=== PATIENT | male | born 1985 | race American Indian/Alaskan Native ===

== ENCOUNTER 2020-04-14 23:05 | Emergency (ER) | payer MEDICAID ==
[2020-04-14] MEDS ORDERED: Succinylcholine 200 MG/10 ML MDV IV ONE (23:06)
[2020-04-14] MEDS ORDERED: Rocuronium 100 MG/10 ML MDV IV ONE (23:06)
[2020-04-14] MEDS ORDERED: Propofol 200 MG/20 ML SDV IV ONE (23:06)
[2020-04-14] MEDS ORDERED: LORazepam 2 MG/ML SDV IVPUSH ONE ×2 (23:07→23:17)
--- NOTE | 2020-04-14 23:09 | EDM.PDOC ---
ED HPI GENERAL MEDICAL PROBLEM - General Stated Complaint: AMBULANCE Time Seen by Provider: 04/14/20 23:08 Source of Information: Reports: EMS History Limitations: Reports: Altered Mental Status - History of Present Illness INITIAL COMMENTS - FREE TEXT/NARRATIVE: EMS arrived @ scene pt unresponsive lying on floor closet in his room.found by family member. pt started movement en route during naso airway placement. pt trying to sit up but non verbal. C-collar in place. follows command. 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 ED EXAM, UPPER BACK/NECK PAIN - Physical Exam Exam: See Below Exam Limited By: Combative/Threatening General Appearance: Other (non verbal, somewhat follow command) Eye Exam: Bilateral Eye: PERRL (pupils ER @ 5mm) Ears Exam: Hearing Grossly Normal Nose Exam: Other (nasal airway in place with good air motion) Throat/Mouth Exam: Other (in C collar) Head Exam: Atraumatic Neck Exam: Other (in C collar, visible bruising front of neck, no gross crepitus, trachea essentiall midline) Cardiovascular/Respiratory: Regular Rate, Rhythm, Rales, Rhonchi GI/Abdominal: No: No Distention Extremities: Normal Inspection, Normal Range of Motion Neurologic: Other (non verbal follows command, possible decorticating activity but with simultaneous body flexion) Psychiatric: Other (non verbal follows commands) Skin Exam: Normal Color, Warm/Dry Lymphatic: No Adenopathy Course - Orders/Labs/Meds Orders: Active Orders 24 hr Category Date Time Status EKG 12 Lead [EKG Documentation Completion] [RC] STAT Care 04/15/20 00:00 Active Chest 1V Frontal [CR] Urgent Exams 04/14/20 23:35 Taken Labs: Laboratory Tests 04/14/20 04/14/20 04/14/20 Range/Units 23:10 23:10 23:17 WBC 9.5 (5.0-10.0) 10^3/uL RBC 5.26 (4.6-6.2) 10^6/uL Hgb 16.2 (14.0-18.0) g/dL Hct 45.9 (40.0-54.0) % MCV 87.3 (80-100) fL MCH 30.8 (27.0-34.0) pg MCHC 35.3 H (33.0-35.0) g/dL Plt Count 262 (150-450) 10^3/uL Neut % (Auto) 84.2 H (42.2-75.2) % Lymph % (Auto) 9.6 L (20.5-50.1) % Fleming % (Auto) 5.2 (2-8) % Eos % (Auto) 0.6 L (1.0-3.0) % Baso % (Auto) 0.4 (0.0-1.0) % Sodium 141 (136-145) mmol/L Potassium 3.9 (3.5-5.1) mmol/L Chloride 104 (98-107) mmol/L Carbon Dioxide 22 (21-32) mmol/L Anion Gap 18.9 H (7-13) mEq/L BUN 9 (7-18) mg/dL Creatinine 1.44 H (0.70-1.30) mg/dL Est Cr Clr Drug Dosing TNP Estimated GFR (MDRD) 56 BUN/Creatinine Ratio 6.3 (No establ ref range) Glucose 180 H (74-99) mg/dL Calcium 8.3 L (8.5-10.1) mg/dL Total Bilirubin 0.7 (0.2-1.0) mg/dL AST 23 (15-37) U/L ALT 35 (16-63) U/L Alkaline Phosphatase 39 L (46-116) U/L Total Protein 8.1 (6.4-8.2) g/dL Albumin 4.1 (3.4-5.0) g/dL Globulin 4.0 Albumin/Globulin Ratio 1.0 Urine Opiates Screen Negative (NEGATIVE) Ur Oxycodone Screen Negative (NEGATIVE) Urine Methadone Screen Negative (NEGATIVE) Ur Barbiturates Screen Negative (NEGATIVE) U Tricyclic Antidepress Negative (NEGATIVE) Ur Phencyclidine Scrn Negative (NEGATIVE) Ur Amphetamine Screen Positive H (NEGATIVE) U Methamphetamines Scrn Positive H (NEGATIVE) Urine MDMA Screen Negative (NEGATIVE) U Benzodiazepines Scrn Negative (NEGATIVE) Urine Cocaine Screen Negative (NEGATIVE) U Marijuana (THC) Screen Negative (NEGATIVE) Ethyl Alcohol 132 (0) mg/dL Meds: Medications Discontinued Medications Generic Name Dose Route Start Last Admin Trade Name Freq PRN Reason Stop Dose Admin Lorazepam 1 mg 04/14/20 23:07 Ativan IVPUSH 04/14/20 23:08 ONETIME ONE Lorazepam 1 mg 04/14/20 23:17 Ativan IVPUSH 04/14/20 23:18 ONETIME ONE Lorazepam Confirm 04/14/20 23:19 Ativan Administered 04/14/20 23:20 Dose 2 mg .ROUTE .STK-MED ONE - Re-Assessments/Exams Free Text/Narrative Re-Assessment/Exam: 04/14/20 23:[address] Edmondson @ [facility] who kindly accepted pt. Departure - Departure Time of Disposition: 23:53 Disposition: DC/Tfer to Acute Hospital 02 Condition: Fair Clinical Impression: Asphyxiation by hanging Qualifiers: Encounter type: initial encounter Injury intent: undetermined intent Qualified Code(s): T71.164A - Asphyxiation due to hanging, undetermined, initial encounter - Discharge Information Forms: Interfacility Transfer EMTALA - My Orders Last 24 Hours: My Active Orders 04/14/20 23:35 Chest 1V Frontal [CR] Urgent 04/15/20 00:00 EKG 12 Lead [EKG Documentation Completion] [RC] STAT - Assessment/Plan Last 24 Hours: My Active Orders 04/14/20 23:35 Chest 1V Frontal [CR] Urgent 04/15/20 00:00 EKG 12 Lead [EKG Documentation Completion] [RC] STAT
[2020-04-14] MEDS ORDERED: LORazepam 2 MG/ML SDV ONE (23:19)
[2020-04-14 23:36] LABS: ANION GAP 18.9 mEq/L (7-13); CHLORIDE,CL 104 mmol/L (98-107); SODIUM,NA 141 mmol/L (136-145)
--- NOTE | 2020-04-15 00:03 | CR ---
PROCEDURE INFORMATION: Exam: XR Chest, 1 View Exam date and time: 04/14/2020 11:40 PM Age: 34 years old Clinical indication: Other: Tube placement; Additional info: Et placement TECHNIQUE: Imaging protocol: XR of the chest Views: 1 view. COMPARISON: No relevant prior studies available. FINDINGS: Tubes, catheters and devices: An endotracheal tube projects over the tracheal air column, tip of the catheter resides in satisfactory position. Lungs: No suspicious pulmonary nodules or areas of lung consolidation. Pleural space: Costophrenic angles are sharp. No pneumothorax. Heart/Mediastinum: Unremarkable. No cardiomegaly. Bones/joints: Age appropriate. IMPRESSION: 1. No active disease of the chest. 2. An endotracheal tube projects over the tracheal air column, tip of the catheter resides in satisfactory position.
[2020-04-15] MEDS ORDERED: Lactated Ringers 1,000 ML IV ONE (00:09)
== END 2020-04-15 00:43 ==
LOC: DL.ED 23:05
DX: T71.164A Asphyxiation due to hanging, undetermined, initial encounter (principal); Z88.0 Allergy status to penicillin; Z88.5 Allergy status to narcotic agent; Z88.1 Allergy status to other antibiotic agents
CPT/HCPCS: 31500; 36415; 71045; 80053; 80305; 80307; 85025; 96361; 96374; 99285; J0330; J2060; J2704; J7120